=== PATIENT | male | born 1990 | race African-American/Black ===

== ENCOUNTER 2017-02-09 09:33 | Emergency (ER) | payer MEDICAID ==
[~2017-02-09] VITALS: Ht 180.3 cm; Wt 79.0 kg
[2017-02-09] MEDS ORDERED: IBUPROFEN 600MG TABLET PO ONE (11:00)
[2017-02-09 12:32] VITALS: BP 122/80
== END 2017-02-09 12:34 | disposition home or self-care (01) ==
LOC: ER 09:33
DX: S62.620A Displaced fracture of middle phalanx of right index finger, initial encounter for closed fracture (principal); F12.10 Cannabis abuse, uncomplicated; W01.0XXA Fall on same level from slipping, tripping and stumbling without subsequent striking against object, initial encounter; Y93.67 Activity, basketball; Y92.89 Other specified places as the place of occurrence of the external cause
CPT/HCPCS: 73130; 99283

== ENCOUNTER 2017-12-30 23:17 | Emergency (ER) | payer SELFPAY ==
[~2017-12-30] VITALS: Ht 180.3 cm; Wt 79.0 kg
[2017-12-31] MEDS ORDERED: SODIUM CHLORIDE 0.9% 1,000 ML IV ONE (00:31)
[2017-12-31 01:23] LABS: BASOPHILS % 0.4 % (0.0-2.0); EOSINOPHILS % 1.5 % (0.0-5.0); HEMATOCRIT. 41.3 % (42.0-52.0); HEMOGLOBIN. 14.3 g/dL (14.0-18.0); LYMPHOCYTES % 44.2 % (20.0-50.0); MEAN CORPUSCULAR HEMOGLOBIN 32.8 pg (28.0-32.0); MEAN CORPUSCULAR VOLUME 94.9 fL (80.0-94.0); MONOCYTES % 7.4 % (2.0-8.0); NEUTROPHILS % 46.5 % (40.0-76.0); PLATELET 179 x1000/uL (130-400); RED BLOOD CELL COUNT 4.36 mill/uL (4.7-6.1); RED CELL DISTRIBUTION WIDTH 12.7 % (11.6-14.6)
[2017-12-31 01:36] LABS: CHLORIDE 104 mEq/L (98-107)
[2017-12-31 02:10] VITALS: BP 123/87
== END 2017-12-31 02:35 | disposition home or self-care (01) ==
LOC: ER 23:17
DX: G89.29 Other chronic pain (principal); R51 Headache; R20.0 Anesthesia of skin; F17.210 Nicotine dependence, cigarettes, uncomplicated; F12.10 Cannabis abuse, uncomplicated; R07.9 Chest pain, unspecified
CPT/HCPCS: 36415; 70450; 71045; 80053; 84484; 85025; 93005; 99285; 99406; J7030; Z7610